=== PATIENT | female | born 1995 | race Caucasian/White ===

== ENCOUNTER 2016-12-30 16:29 | Emergency (ER) | payer OTHER ==
[2016-12-30 16:29] VITALS: BMI 25.4
[2016-12-30 16:50] VITALS: BP 115/72; PULSE 95; RESP 20; TEMP 99.2; O2SAT 99
[2016-12-30] MEDS ORDERED: Sodium Chloride 0.9% 1,000 ML IV STA (17:11)
--- NOTE | 2016-12-30 17:52 | ED PDOC ---
HPI: General Adult Time Seen by Provider: 12/30/16 16:50 Chief Complaint (Nursing): Abdominal Pain Chief Complaint (Provider): abdominal pain History Per: Patient History/Exam Limitations: no limitations Additional Complaint(s): 21yo F in ED with c.o of lower abd pain (cramping) and associated headache with dizziness x 1 day. no vomiting no fever no dysuria no hematuira no change in BM. hx of migraines. Past Medical History Reviewed: Historical Data, Nursing Documentation, Vital Signs Vital Signs: Last Vital Signs Temp 99.2 F 12/30/16 16:47 Pulse 95 H 12/30/16 16:47 Resp 20 12/30/16 16:47 BP 115/72 12/30/16 16:47 Pulse Ox 99 12/30/16 17:53 - Medical History PMH: No Chronic Diseases - Family History Family History: States: No Known Family Hx - Home Medications Home Medications: Ambulatory Orders Medication Instructions Recorded Ondansetron [Zofran] 4 mg PO Q8H PRN #6 tab 08/11/14 Acetaminophen with Codeine 1 tab PO Q6H PRN #10 tab 05/26/15 [Tylenol with Codeine No. 3 300 mg-30 mg] Meclizine [Meclizine*] 25 mg PO Q6 PRN #20 tab 05/26/15 Ciprofloxacin [Cipro] 1 tab PO BID #6 tab 10/05/15 No Other Home Meds 10/05/15 Phenazopyridine HCl [Pyridium] 1 tab PO BID #6 tablet 10/05/15 Dicyclomine [Bentyl] 10 mg PO QID #15 cap 12/30/16 - Allergies Allergies/Adverse Reactions: Allergies Allergy/AdvReac Type Severity Reaction Status Date / Time amoxicillin Allergy RASH Verified 05/26/15 11:28 Review of Systems ROS Statement: Except As Marked, All Systems Reviewed And Found Negative Constitutional: Negative for: Fever, Chills Gastrointestinal: Positive for: Abdominal Pain. Negative for: Nausea, Vomiting Genitourinary Female: Negative for: Dysuria, Frequency Neurological: Positive for: Headache, Dizziness Physical Exam - Reviewed Nursing Documentation Reviewed: Yes Vital Signs Reviewed: Yes - Physical Exam Appears: Positive for: Non-toxic, No Acute Distress Head Exam: Positive for: ATRAUMATIC, NORMAL INSPECTION, NORMOCEPHALIC Skin: Positive for: Normal Color, Warm, DRY Eye Exam: Positive for: EOMI, Normal appearance, PERRL ENT: Positive for: Normal ENT Inspection Neck: Positive for: Normal, Painless ROM Cardiovascular/Chest: Positive for: Regular Rate, Rhythm Respiratory: Positive for: CNT, Normal Breath Sounds Gastrointestinal/Abdominal: Positive for: Bowel Sounds, Soft, Tenderness ( suprapubic) Back: Positive for: Normal Inspection. Negative for: L CVA Tenderness, R CVA Tenderness Extremity: Positive for: Normal ROM Neurologic/Psych: Positive for: Alert, Oriented - Laboratory Results Result Diagrams: 12/30/16 17:45 12/30/16 17:45 - ECG O2 Sat by Pulse Oximetry: 99 - Progress ED Course And Treament: Orders Category Date Time Status COMP METABOLIC PANEL Stat Chem 12/30/16 17:45 Received ED Urine (POC) Stat ED Care 12/30/16 17:25 Ordered CBC (WITH DIFFERENTIAL) Stat KAYLIN 12/30/16 17:45 Received Ketorolac [Toradol] Med 12/30/16 17:29 Discontinued 30 mg .ROUTE .STK-MED ONE Ketorolac [Toradol] Med 12/30/16 17:11 Discontinued 30 mg IVP STAT STA Sodium Chloride 0.9% 1,000 ml Med 12/30/16 17:11 Active IV 1,000 mls/hr URINALYSIS Stat URINALYSIS 12/30/16 17:45 Received Medical Decision Making Medical Decision Makin12/30/16 12/30/16 10 17:45 17:45 17:45 WBC 8.8 RBC 4.01 Hgb 11.1 L Hct 34.4 MCV 85.7 MCH 27.7 MCHC 32.3 L RDW 13.6 Plt Count 242 MPV 9.7 Neut % (Auto) 58.2 Lymph % (Auto) 33.4 [place] % (Auto) 7.0 Eos % (Auto) 0.9 Baso % (Auto) 0.5 Neut # 5.2 Lymph # 3.0 [place] # 0.6 Eos # 0.1 Baso # 0.0 Sodium 146 Potassium 3.9 Chloride 107 Carbon Dioxide 28 Anion Gap 14 BUN 6 L Creatinine 0.7 Est GFR ( Amer) > 60 Est GFR (Non-Af Amer) > 60 Random Glucose 90 Calcium 8.8 Total Bilirubin 0.3 AST 43 H ALT 43 Alkaline Phosphatase 63 Total Protein 7.8 Albumin 4.4 Globulin 3.4 Albumin/Globulin Ratio 1.3 Urine Color Straw Urine Clarity Clear Urine pH 8.0 Ur Specific [place] 1.005 Urine Protein Negative Urine Glucose (UA) Neg Urine Ketones Negative Urine Blood Negative Urine Nitrate Negative Urine Bilirubin Negative Urine Urobilinogen 0.2-1.0 Ur Leukocyte Esterase Neg Urine RBC (Auto) 1 Urine Microscopic WBC < 1 Ur Squamous Epith Cells < 1 pt with unremarkable. Pt BURNETT improved. Pt may most likely have a viral GI. given bently for discomfort. advised to f.u with pmd Disposition - Clinical Impression Clinical Impression: Abdominal pain, Headache - Patient ED Disposition Is Patient to be Admitted: No Counseled Patient/Family Regarding: Studies Performed, Diagnosis, Need For Followup, Rx Given - Disposition Referrals: [facility] [Outside] Disposition: Routine/Home Disposition Time: 18:49 Condition: STABLE Prescriptions: Dicyclomine [Bentyl] 10 mg PO QID #15 cap Instructions: Gastroenteritis (ED) Forms: [facility] ED School/Work Excuse Print Language: MALAWIAN
[2016-12-30 17:54] LABS: BASO % 0.5 % (0.0-2.0); EOS # 0.1 K/uL (0.0-0.7); EOS % 0.9 % (0.0-4.0); HEMATOCRIT 34.4 % (34.0-47.0); LYMPH % 33.4 % (20.0-40.0); MEAN CELL VOLUME 85.7 fl (81.0-99.0); MEAN CORPUSCULAR HEMOGLOBIN 27.7 pg (27.0-31.0); MEAN CORPUSCULAR HGB CONC 32.3 g/dL (33.0-37.0); MEAN PLATELET VOLUME 9.7 fl (7.2-11.7); MONO # 0.6 K/uL (0.0-0.8); NEUT # 5.2 K/uL (1.8-7.0); NEUT % 58.2 % (50.0-75.0); RED CELL DISTRIBUTION WIDTH 13.6 % (11.5-14.5); WHITE BLOOD COUNT 8.8 K/uL (4.8-10.8)
[2016-12-30 18:00] LABS: RBC URINE 1 /hpf (0-3); URINE BILIRUBIN NEGATIVE (NEGATIVE); URINE BLOOD NEGATIVE (NEGATIVE); URINE COLOR STRAW (YELLOW); URINE GLUCOSE (UA) NEG (Normal); URINE KETONE NEGATIVE (NEGATIVE); URINE LEUKOCYTE ESTERASE NEG Leu/uL (Negative); URINE PROTEIN NEGATIVE (NEGATIVE); URINE UROBILINOGEN 0.2-1.0 mg/dL (0.2-1.0); WBC URINE < 1 /hpf (0-5)
[2016-12-30 18:01] LABS: ALB/GLOB RATIO 1.3 (1.0-2.1); ALKALINE PHOSPHATASE 63 U/L (38-126); ALT/SGPT 43 U/L (9-52); AST/SGOT 43 U/L (14-36); BILIRUBIN,TOTAL 0.3 mg/dl (0.2-1.3); BLOOD UREA NITROGEN 6 mg/dl (7-17); CALCIUM 8.8 mg/dL (8.4-10.2); CARBON DIOXIDE 28 mmol/L (22-30); CHLORIDE 107 mmol/L (98-107); GFR AFRICAN-AMERICAN > 60; GLUCOSE,RANDOM 90 mg/dL (65-105); POTASSIUM 3.9 MMOL/L (3.6-5.0); SODIUM 146 mmol/l (132-148); TOTAL PROTEIN 7.8 G/DL (6.3-8.2)
== END 2016-12-30 19:15 | disposition home or self-care (01) ==
LOC: H.ER 16:29
DX: R51 Headache (principal); R10.30 Lower abdominal pain, unspecified
CPT/HCPCS: 80053; 81003; 81025; 85025; 96361; 96374; 99282; J1885; J7040

== ENCOUNTER 2017-04-26 08:48 | Emergency (ER) | payer OTHER ==
[2017-04-26 08:54] VITALS: BMI 25.6
[2017-04-26] MEDS ORDERED: Albuterol-Ipratrop 3 mg / 0.5 (3 ml) UD INH STA (10:20)
[2017-04-26] MEDS ORDERED: Albuterol-Ipratrop 3 mg / 0.5 (3 ml) UD ONE (10:27)
[2017-04-26 11:06] LABS: BASO # 0.1 K/uL (0.0-0.2); BASO % 0.7 % (0.0-2.0); EOS # 0.1 K/uL (0.0-0.7); EOS % 0.5 % (0.0-4.0); HEMOGLOBIN 13.2 g/dL (12.0-16.0); LYMPH # 1.9 K/uL (1.0-4.3); LYMPH % 17.6 % (20.0-40.0); MEAN CELL VOLUME 83.8 fl (81.0-99.0); MEAN CORPUSCULAR HEMOGLOBIN 28.1 pg (27.0-31.0); MEAN CORPUSCULAR HGB CONC 33.6 g/dL (33.0-37.0); MEAN PLATELET VOLUME 9.2 fl (7.2-11.7); MONO # 0.6 K/uL (0.0-0.8); MONO % 5.4 % (0.0-10.0); NEUT # 8.1 K/uL (1.8-7.0); NEUT % 75.8 % (50.0-75.0); RBC 4.69 Mil/uL (3.80-5.20); RED CELL DISTRIBUTION WIDTH 14.5 % (11.5-14.5); WHITE BLOOD COUNT 10.7 K/uL (4.8-10.8)
--- NOTE | 2017-04-26 11:17 | ED PDOC ---
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 Denies dizziness, fever, cough, syncope, hemoptysis, focal weakness or prior history of similar symptoms. Does remember childhood asthma feeling similar. Past Medical History Reviewed: Historical Data, Nursing Documentation, Vital Signs Vital Signs: Last Vital Signs Temp 98.6 F 04/26/17 12:53 Pulse 78 04/26/17 12:53 Resp 15 04/26/17 12:53 BP 131/70 04/26/17 12:53 Pulse Ox 99 04/26/17 12:53 - Medical History PMH: No Chronic Diseases - Surgical History Surgical History: No Surg Hx - Family History Family History: States: Unknown Family Hx - Living Arrangements Living Arrangements: With Family - Social History Current smoker - smoking cessation education provided: No - Home Medications Home Medications: Ambulatory Orders Medication Instructions Recorded Acetaminophen with Codeine 1 tab PO Q6H PRN #10 tab 05/26/15 [Tylenol with Codeine No. 3 300 mg-30 mg] Meclizine [Meclizine*] 25 mg PO Q6 PRN #20 tab 05/26/15 Ibuprofen [Motrin Tab] 600 mg PO Q6 PRN #15 tab 04/26/17 - Allergies Allergies/Adverse Reactions: Allergies Allergy/AdvReac Type Severity Reaction Status Date / Time amoxicillin Allergy RASH Verified 05/26/15 11:28 Review of Systems Constitutional: Negative for: Fever, Chills Cardiovascular: Positive for: Chest Pain, Palpitations. Negative for: Orthopnea Respiratory: Positive for: Shortness of Breath. Negative for: Cough, Hemoptysis Gastrointestinal: Negative for: Nausea, Abdominal Pain Genitourinary Female: Negative for: Dysuria Musculoskeletal: Negative for: Neck Pain, Shoulder Pain Skin: Negative for: Rash, Lesions Neurological: Negative for: Weakness, Numbness, Headache, Dizziness Psych: Positive for: Anxiety. Negative for: Depression Physical Exam - Reviewed Nursing Documentation Reviewed: Yes Vital Signs Reviewed: Yes - Physical Exam Appears: Positive for: Well, Non-toxic, No Acute Distress Head Exam: Positive for: ATRAUMATIC, NORMAL INSPECTION, NORMOCEPHALIC Skin: Positive for: Normal Color, Warm, DRY Eye Exam: Positive for: EOMI, Normal appearance, PERRL ENT: Positive for: Normal ENT Inspection Neck: Positive for: Normal, Painless ROM Cardiovascular/Chest: Positive for: Regular Rate, Rhythm Respiratory: Positive for: CNT, Normal Breath Sounds Gastrointestinal/Abdominal: Positive for: Normal Exam, Bowel Sounds, Soft Back: Positive for: Normal Inspection Extremity: Positive for: Normal ROM Neurologic/Psych: Positive for: Alert, Oriented, Mood/Affect (anxious). Negative for: Motor/Sensory Deficits - Laboratory Results Result Diagrams: 04/26/17 11:00 04/26/17 10:30 - ECG ECG: Positive for: Interpreted By Pa ECG Rhythm: Positive for: Normal QRS, Normal ST Segment, Nonspecific Changes Rate: 93 O2 Sat by Pulse Oximetry: 100 Pulse Ox Interpretation: Normal - Radiology X-Ray: Interpreted by Me X-Ray Interpretation: No Acute Disease Medical Decision Making Medical Decision Making: Heart score 0 labs reviewed trop, BNP and ddimer all unremarkable CXR reviewed Duoneb given w some improvement Vitals stable results and need for followup were explained Disposition - Clinical Impression Clinical Impression: Chest pain - Patient ED Disposition Is Patient to be Admitted: No Counseled Patient/Family Regarding: Studies Performed, Diagnosis, Need For Followup, Rx Given - Disposition Referrals: [facility] [Outside] Disposition: Routine/Home Disposition Time: 12:01 Condition: STABLE Additional Instructions: Return to ER for any worse or new symptoms/ Prescriptions: Ibuprofen [Motrin Tab] 600 mg PO Q6 PRN #15 tab PRN Reason: Pain, Moderate (4-7) Instructions: Chest Pain (ED) Forms: [employer] ([place]) Print Language: AMHARIC
[2017-04-26 11:20] LABS: INR 1.1 (0.9-1.2); PARTIAL THROMBOPLASTIN TIME 26.4 Seconds (25.6-37.1); PROTHROMBIN TIME 12.2 Seconds (9.8-13.1)
[2017-04-26 11:30] LABS: B-TYPE NATRIURETIC PEPTIDE 34.6 pg/ml (0-450)
[2017-04-26 11:50] LABS: ALB/GLOB RATIO 1.2 (1.0-2.1); ALBUMIN 4.8 g/dL (3.5-5.0); ALT/SGPT 27 U/L (9-52); AST/SGOT 33 U/L (14-36); BLOOD UREA NITROGEN 11 mg/dl (7-17); CALCIUM 10.1 mg/dL (8.4-10.2); GFR AFRICAN-AMERICAN > 60; GFR NON-AFRICAN AMERICAN > 60
[2017-04-26 12:54] VITALS: BP 131/70; RESP 15; TEMP 98.6
--- NOTE | 2017-04-26 13:10 | RAD ---
HISTORY: chest pain/ r/o infiltrate COMPARISON: No prior. TECHNIQUE: Chest PA and lateral FINDINGS: LUNGS: No active pulmonary disease. PLEURA: No significant pleural effusion identified. No pneumothorax apparent. CARDIOVASCULAR: Normal. OSSEOUS STRUCTURES: No significant abnormalities. VISUALIZED UPPER ABDOMEN: Normal. OTHER FINDINGS: None. IMPRESSION: No active disease.
[2017-05-08 10:37] VITALS: PULSE 93; O2SAT 100
== END 2017-04-26 12:54 | disposition home or self-care (01) ==
LOC: H.ER 08:48
DX: R07.9 Chest pain, unspecified (principal)
CPT/HCPCS: 71046; 80053; 81025; 83880; 84484; 85025; 85378; 85610; 85730; 94150; 94640; 99283; J1885

== ENCOUNTER 2017-05-08 11:53 | Emergency (ER) | payer OTHER, SELFPAY ==
[2017-05-08 11:53] VITALS: BMI 25.6
--- NOTE | 2017-05-08 13:02 | ED PDOC ---
HPI: Psych/Substance Abuse Time Seen by Provider: 05/08/17 12:00 Chief Complaint (Nursing): Palpitations Chief Complaint (Provider): anxiety History Per: Patient History/Exam Limitations: no limitations Onset/Duration Of Symptoms: Days (x2 weeks) Current Symptoms Are (Timing): Still Present Additional Complaint(s): 21 year old female presents to the emergency department with a complaint of anxiety associated with chills and palpitations ongoing intermittently for 2 weeks. Denied any vomiting, diarrhea, chest pain, shortness of breath or knowledge of cause. pt states she is stressed out. denies SI or HI PMD: none provided Past Medical History Reviewed: Historical Data, Nursing Documentation, Vital Signs Vital Signs: Last Vital Signs Temp 100.1 F H 05/08/17 12:26 Pulse 105 H 05/08/17 12:26 Resp 18 05/08/17 12:26 BP 121/74 05/08/17 12:26 Pulse Ox 97 05/08/17 12:26 - Medical History PMH: Asthma - Surgical History Surgical History: No Surg Hx - Family History Family History: States: Unknown Family Hx - Social History Current smoker - smoking cessation education provided: No Alcohol: None Drugs: Denies - Home Medications Home Medications: Ambulatory Orders Medication Instructions Recorded Acetaminophen with Codeine 1 tab PO Q6H PRN #10 tab 05/26/15 [Tylenol with Codeine No. 3 300 mg-30 mg] Meclizine [Meclizine*] 25 mg PO Q6 PRN #20 tab 05/26/15 Ibuprofen [Motrin Tab] 600 mg PO Q6 PRN #15 tab 04/26/17 - Allergies Allergies/Adverse Reactions: Allergies Allergy/AdvReac Type Severity Reaction Status Date / Time amoxicillin Allergy RASH Verified 05/08/17 12:26 Review of Systems ROS Statement: Except As Marked, All Systems Reviewed And Found Negative Constitutional: Positive for: Chills Cardiovascular: Positive for: Palpitations. Negative for: Chest Pain Respiratory: Negative for: Shortness of Breath Gastrointestinal: Negative for: Vomiting, Diarrhea Psych: Positive for: Anxiety. Negative for: Suicidal ideation (or homicidal ideation) Physical Exam - Reviewed Nursing Documentation Reviewed: Yes Vital Signs Reviewed: Yes - Physical Exam Appears: Positive for: Non-toxic, No Acute Distress Head Exam: Positive for: ATRAUMATIC, NORMAL INSPECTION, NORMOCEPHALIC Cardiovascular/Chest: Positive for: Regular Rate, Rhythm, Chest Non Tender Respiratory: Positive for: Normal Breath Sounds. Negative for: Decreased Breath Sounds, Wheezing, Respiratory Distress Gastrointestinal/Abdominal: Positive for: Normal Exam, Soft. Negative for: Tenderness Extremity: Positive for: Normal ROM (upper/lower). Negative for: Pedal Edema ( bilateral) Neurologic/Psych: Positive for: Alert, Oriented, Mood/Affect (calm and cooperative). Negative for: Motor/Sensory Deficits - Laboratory Results Result Diagrams: 05/08/17 19:20 05/08/17 19:20 - ECG ECG Rhythm: Positive for: Sinus Tachycardia Rate: 108 O2 Sat by Pulse Oximetry: 97 (RA) Pulse Ox Interpretation: Normal Medical Decision Making Medical Decision Making: Initial Impression: palpitations related to Anxiety Initial Plan: * Crisis evaluation 18:15 --Dr. Pat cleared patient for dc with diagnosis anxiety 18:40 -On demand city mail carrier Gay Gomez #[id number] explained that she is on weight loss tablets. pt still tachycardic. will get medical workup prior to dc. 19:00 --Patient will be signed out to Dr. Montes, pending medical work up and reeval. Scribe Attestation: Documented by Maia Hobbs, acting as a scribe for Ernestine Lou MD. Provider Scribe Attestation: All medical record entries made by the Scribe were at my direction and personally dictated by me. I have reviewed the chart and agree that the record accurately reflects my personal performance of the history, physical exam, medical decision making, and the department course for this patient. I have also personally directed, reviewed, and agree with the discharge instructions and disposition. Disposition - Clinical Impression Clinical Impression: Palpitations, Anxiety - Patient ED Disposition Is Patient to be Admitted: Transfer of Care - Disposition Referrals: [facility] [Outside] Disposition: Transfer of Care Disposition Time: 09:00 Condition: STABLE Instructions: Palpitations, Anxiety, Adult (DC) Forms: [employer] (Greek) Print Language: SAMOAN Patient Signed Over To: Rl Montes
[2017-05-08 13:20] LABS: SQUAMOUS EPITHIAL 1 /hpf (0-5); URINE BILIRUBIN NEGATIVE (NEGATIVE); URINE BLOOD NEGATIVE (NEGATIVE); URINE CLARITY CLEAR (Clear); URINE COLOR COLORLESS (YELLOW); URINE GLUCOSE (UA) NEG (Normal); URINE LEUKOCYTE ESTERASE NEG Leu/uL (Negative); URINE NITRATE NEGATIVE (NEGATIVE); URINE PROTEIN NEGATIVE (NEGATIVE); URINE UROBILINOGEN 0.2-1.0 mg/dL (0.2-1.0)
[2017-05-08] MEDS ORDERED: Sodium Chloride 0.9% 1,000 ML IV STA (18:46)
[2017-05-08 18:51] VITALS: BP 121/70; TEMP 98.9
--- NOTE | 2017-05-08 19:29 | ED PDOC ---
- Laboratory Results Result Diagrams: 05/08/17 19:20 05/08/17 19:20 - ECG O2 Sat by Pulse Oximetry: 97 (RA) Medical Decision Making Medical Decision Makin:00 --Patient was endorsed to me by Dr. Lou, pending serology and blood work. 20:20 --Upon provider evaluation patient is medically stable, and requires no further treatment in the ED at this time. Patient will be discharged home. Counseling was provided and all questions were answered regarding diagnosis and need for follow up. There is agreement to discharge plan. Return if symptoms persist or worsen. Disposition - Clinical Impression Clinical Impression: Palpitations, Anxiety - POA Present On Arrival: None - Disposition [facility]errals[facility] [Outside] Disposition: Routine/Home Disposition Time: 20:20 Condition: STABLE Instructions: Palpitations, Anxiety, Adult (DC) Forms: [employer] (Greek) Print Language: SINHALA
[2017-05-08 19:45] LABS: BASO # 0.1 K/uL (0.0-0.2); BASO % 0.6 % (0.0-2.0); HEMOGLOBIN 12.8 g/dL (12.0-16.0); LYMPH # 2.3 K/uL (1.0-4.3); MEAN CELL VOLUME 85.1 fl (81.0-99.0); MEAN CORPUSCULAR HEMOGLOBIN 28.1 pg (27.0-31.0); MONO # 0.5 K/uL (0.0-0.8); MONO % 5.7 % (0.0-10.0); NEUT # 5.2 K/uL (1.8-7.0); NEUT % 64.7 % (50.0-75.0); NRBC % 0.1 % (0.0-0.0); RBC 4.57 Mil/uL (3.80-5.20); RED CELL DISTRIBUTION WIDTH 13.8 % (11.5-14.5); WHITE BLOOD COUNT 8.1 K/uL (4.8-10.8)
[2017-05-08 19:57] VITALS: RESP 22
[2017-05-08 20:07] LABS: ALB/GLOB RATIO 1.2 (1.0-2.1); ALBUMIN 4.8 g/dL (3.5-5.0); ALT/SGPT 47 U/L (9-52); AST/SGOT 32 U/L (14-36); BLOOD UREA NITROGEN 6 mg/dl (7-17); CALCIUM 9.8 mg/dL (8.4-10.2); GFR AFRICAN-AMERICAN > 60; GFR NON-AFRICAN AMERICAN > 60
[2017-05-08 20:27] VITALS: O2SAT 97
--- NOTE | 2017-05-09 22:23 | CARD ---
APPROVED REPORT EKG Measurement Heart [id number] <Conclusion> Sinus tachycardia Otherwise normal ECG
[2017-05-10 20:41] VITALS: PULSE 108
== END 2017-05-08 20:37 | disposition home or self-care (01) ==
LOC: H.ER 11:53
DX: R00.2 Palpitations (principal); F41.9 Anxiety disorder, unspecified; J45.909 Unspecified asthma, uncomplicated
CPT/HCPCS: 80053; 81003; 81025; 84484; 85025; 85378; 87086; 87804; 93005; 99285; J7040

== ENCOUNTER 2017-06-11 12:04 | Emergency (ER) | payer OTHER ==
[2017-06-11 12:05] VITALS: BMI 25.6
[2017-06-11 12:49] VITALS: BP 127/85; PULSE 74; RESP 18; TEMP 98.9; O2SAT 100
--- NOTE | 2017-06-11 12:52 | ED PDOC ---
HPI: General Adult Time Seen by Provider: 06/11/17 12:51 Chief Complaint (Nursing): Headache Chief Complaint (Provider): headache, nausea History Per: Patient Additional Complaint(s): 21-year-old female presents with headache, nausea and ringing in ears ongoing for 2 weeks. Patient states she was told that she has tinnitus. She denies dizziness, fever or chills. Patient does complain of buzzing sound to right ear for 2 days. PMD: none Past Medical History Reviewed: Historical Data, Nursing Documentation, Vital Signs Vital Signs: Last Vital Signs Temp 98.9 F 06/11/17 12:46 Pulse 74 06/11/17 12:46 Resp 18 06/11/17 12:46 BP 127/85 06/11/17 12:46 Pulse Ox 100 06/11/17 13:53 - Medical History PMH: Asthma - Family History Family History: States: No Known Family Hx - Living Arrangements Living Arrangements: With Family - Social History Current smoker - smoking cessation education provided: No Alcohol: None Drugs: Denies - Home Medications Home Medications: Ambulatory Orders Medication Instructions Recorded Acetaminophen with Codeine 1 tab PO Q6H PRN #10 tab 05/26/15 [Tylenol with Codeine No. 3 300 mg-30 mg] Meclizine [Meclizine*] 25 mg PO Q6 PRN #20 tab 05/26/15 Ibuprofen [Motrin Tab] 600 mg PO Q6 PRN #15 tab 04/26/17 Ibuprofen [Motrin] 600 mg PO Q6 PRN #15 tab 06/11/17 Methylprednisolone [Medrol Dose 4 mg PO ASDIR #21 mg 06/11/17 Pack (21 tabs)] Ondansetron [Zofran Odt] 4 mg PO ASDIR PRN #15 odt 06/11/17 - Allergies Allergies/Adverse Reactions: Allergies Allergy/AdvReac Type Severity Reaction Status Date / Time amoxicillin Allergy RASH Verified 06/11/17 12:46 Review of Systems ROS Statement: Except As Marked, All Systems Reviewed And Found Negative Constitutional: Negative for: Fever, Chills ENT: Positive for: Ear Pain. Negative for: Throat Pain Gastrointestinal: Positive for: Nausea. Negative for: Vomiting Neurological: Positive for: Headache, Dizziness Physical Exam - Reviewed Nursing Documentation Reviewed: Yes Vital Signs Reviewed: Yes - Physical Exam Appears: Positive for: Well, Non-toxic, No Acute Distress Skin: Negative for: Rash Eye Exam: Positive for: Normal appearance ENT: Positive for: Normal ENT Inspection. 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 Negative for: Motor/Sensory Deficits, Aphasia, Facial Droop - Laboratory Results Urine POC: Negative Urine dip results: Negative for: Leukocyte Esterase, Blood, Nitrate, Ketones, Glucose, Bilirubin, Protein - ECG O2 Sat by Pulse Oximetry: 100 Pulse Ox Interpretation: Normal Medical Decision Making Medical Decision Makin21 year old with headache and nausea Plan: test PO zofran PO tylenol PO motrin Patient states she feels better after meds were given. test is negative. Patient was referred to ENT for follow-up. Disposition - Clinical Impression Clinical Impression: Headache, Acute labyrinthitis - Patient ED Disposition Is Patient to be Admitted: No Counseled Patient/Family Regarding: Diagnosis, Need For Followup, Rx Given - Disposition Referrals: Popeye Correia MD [Staff Provider] - [facility] [Outside] Disposition: Routine/Home Disposition Time: 14:27 Condition: STABLE Additional Instructions: Take prescription meds as directed. Follow up with clinical research spec or with clinic. Prescriptions: Ibuprofen [Motrin] 600 mg PO Q6 PRN #15 tab PRN Reason: Pain, Moderate (4-7) Methylprednisolone [Medrol Dose Pack (21 tabs)] 4 mg PO ASDIR #21 mg Ondansetron [Zofran Odt] 4 mg PO ASDIR PRN #15 odt PRN Reason: Nausea/Vomiting Instructions: Headache, Adult, Labyrinthitis Forms: [employer] (Moldovan), [facility] ED School/Work Excuse, [employer] (Indonesian) Print Language: HUNGARIAN
== END 2017-06-11 14:59 | disposition home or self-care (01) ==
LOC: H.ER 12:04
DX: H83.09 Labyrinthitis, unspecified ear (principal); R51 Headache; J45.909 Unspecified asthma, uncomplicated